=== PATIENT | male | born 1995 | race Caucasian/White ===

== ENCOUNTER 2016-06-25 10:31 | Emergency (ER) | payer OTHER ==
[2016-06-25] MEDS ORDERED: LIDOCAINE 1% INJ-PF (10 MG/ML) 30 ML SDV INJ ONE (11:16)
--- NOTE | 2016-06-25 11:21 | ER Document Report ---
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 He last received a tetanus 8 years ago. He denies numbness, tingling, difficulty moving his fingers or heavy bleeding. All tendons intact, brisk capillary refill, 6 cm laceration over right palmar surface I have greeted and performed a rapid initial assessment of this patient. A comprehensive ED assessment and evaluation of the patient, analysis of test results and completion of the medical decision making process will be conducted by additional ED providers. TRAVEL OUTSIDE OF THE [place] IN LAST 30 DAYS: No - Related Data Allergies/Adverse Reactions: No Known Allergies Allergy (Unverified 06/25/16 10:33) Past Medical History Renal/ Medical History: Denies: Hx Peritoneal Dialysis Physical Exam - Vital signs Vitals: Temp Pulse Resp BP Pulse Ox 98.1 F 75 18 122/77 100 06/25/16 10:40 06/25/16 10:40 06/25/16 10:40 06/25/16 10:40 06/25/16 10:40 Course - Vital Signs Vital signs: Temp Pulse Resp BP Pulse Ox 98.1 F 75 18 122/77 100 06/25/16 10:40 06/25/16 10:40 06/25/16 10:40 06/25/16 10:40 06/25/16 10:40
--- NOTE | 2016-06-25 11:47 | ER Document Report ---
ED Medical Screen (RME) - General Chief Complaint: Laceration Stated Complaint: INJURY/HAND PAIN Time Seen by Provider: 06/25/16 11:17 Mode of Arrival: Ambulatory Information source: Patient Notes: 21-year-old male presents to ED for laceration to his right hand and middle finger. He states he was cleaning dirt off the back of a toe truck when a piece of metal cut his hand across the palm across the middle finger. Patient states she's had his tetanus shot 5 years ago. I have greeted and performed a rapid initial assessment of this patient. A comprehensive ED assessment and evaluation of the patient, analysis of test results and completion of medical decision making process will be conducted by an additional ED providers. TRAVEL OUTSIDE OF THE [place] IN LAST 30 DAYS: No - Related Data Allergies/Adverse Reactions: No Known Allergies Allergy (Unverified 06/25/16 10:33) Past Medical History Renal/ Medical History: Denies: Hx Peritoneal Dialysis Physical Exam - Vital signs Vitals: Pulse Resp BP Pulse Ox 65 18 122/77 100 06/25/16 10:39 06/25/16 10:39 06/25/16 10:39 06/25/16 10:39 Course - Vital Signs Vital signs: Temp Pulse Resp BP Pulse Ox 98.1 F 75 18 122/77 100 06/25/16 10:40 06/25/16 10:40 06/25/16 10:40 06/25/16 10:40 06/25/16 10:40
[2016-06-25] MEDS ORDERED: BUPIVACAINE HCL 0.5 % INJ/PF 30 ML SDV INJ ONE (11:49)
[2016-06-25] MEDS ORDERED: HYDROCODONE/ACETAMINOPHEN 5-325 MG TABLET PO ONE (13:38)
[2016-06-25] MEDS ORDERED: CEPHALEXIN 500 MG CAPSULE PO ONE (13:38)
--- NOTE | 2016-06-25 13:39 | ER Document Report ---
ED General - General Chief Complaint: Laceration Stated Complaint: INJURY/HAND PAIN Time Seen by Provider: 06/25/16 11:17 Mode of Arrival: Ambulatory TRAVEL OUTSIDE OF THE [place] 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 Patient was initially evaluated by a provider from than the mid-level in the [facility] tract area deemed too extensive of repair and therefore was referred to the main side the ER. Patient otherwise has no complaints capillary refill is intact sensation is intact - Related Data Allergies/Adverse Reactions: No Known Allergies Allergy (Unverified 06/25/16 10:33) Past Medical History - General Information source: Patient - Social History Smoking Status: Unknown if Ever Smoked Family History: Reviewed & Not Pertinent Patient has suicidal ideation: No Patient has homicidal ideation: No Renal/ Medical History: Denies: Hx Peritoneal Dialysis Review of Systems - Review of Systems Constitutional: No symptoms reported EENT: No symptoms reported Cardiovascular: No symptoms reported Respiratory: No symptoms reported Gastrointestinal: No symptoms reported Genitourinary: No symptoms reported Male Genitourinary: No symptoms reported Musculoskeletal: No symptoms reported Skin: Other - Large laceration Hematologic/Lymphatic: No symptoms reported Neurological/Psychological: No symptoms reported -: Yes All other systems reviewed and negative Physical Exam - Vital signs Vitals: Pulse Resp BP Pulse Ox 65 18 122/77 100 06/25/16 10:39 06/25/16 10:39 06/25/16 10:39 06/25/16 10:39 Interpretation: Normal - General General appearance: Appears well, Alert - HEENT Head: Normocephalic, Atraumatic Eyes: Normal Pupils: PERRL - Respiratory Respiratory status: No respiratory distress Chest status: Nontender Breath sounds: Normal Chest palpation: Normal - Cardiovascular Rhythm: Regular Heart sounds: Normal auscultation Murmur: No - Abdominal Inspection: Normal Distension: No distension Bowel sounds: Normal Tenderness: Nontender Organomegaly: No organomegaly - Back Back: Normal, Nontender - Extremities General upper extremity: Nontender, Normal color, Normal ROM, Normal temperature , Other - Patient has a large 8.5 cm laceration of the right hand. Patient is able to perform an okay sign finger to thumb of every finger. There is no difficulty with extension or flexion. Capillary refill is intact. Exploration of the wound does show copious amount of adipose tissue tendons are visualized at the MCP joint on the second digit however no signs of laceration Patient does have a small laceration on the second digit at the PIP joint on the middle finger side is approximately 2 cm no active bleeding General lower extremity: Normal inspection, Nontender, Normal color, Normal ROM , Normal temperature, Normal weight bearing. No: Jaxon's sign - Neurological Neuro grossly intact: Yes Cognition: Normal Orientation: AAOx4 [place] Coma Scale Eye Opening: Spontaneous Valeria Coma Scale Verbal: Oriented [place] Coma Scale Motor: Obeys Commands Valeria Coma Scale Total: 15 Speech: Normal Motor strength normal: LUE, RUE, LLE, RLE Sensory: Normal - Psychological Associated symptoms: Normal affect, Normal mood - Skin Skin Temperature: Warm Skin Moisture: Dry Skin Color: Normal Course - Re-evaluation Re-evalutation: 06/25/16 15:11 Laceration was repaired as noted. Patient was placed in a protective splint antibiotics will be prescribed. Patient is to return to the ER for suture removal 06/25/16 15:11 - Vital Signs Vital signs: Temp Pulse Resp BP Pulse Ox 98.4 F 80 18 124/78 100 06/25/16 14:10 06/25/16 14:10 06/25/16 14:10 06/25/16 14:10 06/25/16 14:10 Procedures - Laceration/Wound Repair Right Hand Wound length (cm): 8.5 Wound's Depth, Shape: Linear, Other - Deep into the adipose tissue Laceration pre-procedure: Sterile PPE donned, Chloraprep applied, Sterile drapes applied, Shur-Clens applied Anesthetic type: 0.5% Bupivacaine Volume Anesthetic (mLs): 15 - approximately 10 mL of 1% lidocaine and 5 mL of 0.5% Marcaine used Wound explored: Clean Irrigated w/ Saline (mLs): 2,000 Wound Debrided: Minimal Wound Repaired With: Sutures Suture Size/Type: 5:0, Nylon Number of Sutures: 17 Layer Closure?: Yes Deep Layer Suture Size/Type: 4:0 - Vicryl Number Deep Layer Sutures: 5 Post-procedure wound care: Sterile dressing applied, Splint applied Post-procedure NV exam normal: No Complications: No Discharge - Discharge Clinical Impression: Laceration of right hand Qualifiers: Encounter type: initial encounter Foreign body presence: unspecified Qualified Code(s): S61.411A - Laceration without foreign body of right hand, initial encounter Condition: Good Disposition: HOME, SELF-CARE Instructions: Laceration Care (OM) Additional Instructions: Please keep your laceration dry and clean sutures need to be removed in 10 days. Please take antibiotics as prescribed. Please wear the splint that we gave you here in ER as needed to make sure that you do not extend the hand to discharge the sutures. While you're home resting you do not need to wear the splint. I would wear the splint for at least 5 days after that the wound should be healed up enough that you would not need it. Please return to the ER if there is any signs of infection redness swelling pain drainage I am working on the at 10:00 AM if you wish to return to have me remove the sutures. Prescriptions: Cephalexin Monohydrate [Keflex 500 mg Capsule] 500 mg PO QID #28 capsule Hydrocodone Bit/Acetaminophen [Hydrocodon-Acetaminophen 5-325] 1 each PO Q6 #10 tablet Forms: Return to Work
[2016-06-25 14:12] VITALS: BP 124/78
== END 2016-06-25 14:07 | disposition home or self-care (01) ==
LOC: ER 10:31
PROC: 0JQJ0ZZ Repair Right Hand Subcutaneous Tissue and Fascia, Open Approach (ICD-10-PCS; principal; 2016-06-25)
DX: S61.411A Laceration without foreign body of right hand, initial encounter (principal); S61.210A Laceration without foreign body of right index finger without damage to nail, initial encounter; W45.8XXA Other foreign body or object entering through skin, initial encounter; Y93.89 Activity, other specified; Y99.0 Civilian activity done for income or pay
CPT/HCPCS: 12044; 99283; 73130; L3984; J3490

== ENCOUNTER 2016-07-07 18:45 | Emergency (ER) | payer OTHER ==
--- NOTE | 2016-07-07 19:34 | ER Document Report ---
ED Suture/Wound Recheck - General Chief Complaint: Suture Removal Stated Complaint: STITCH REMOVAL Time Seen by Provider: 07/07/16 19:18 Mode of Arrival: Ambulatory Information source: Patient Notes: 21-year-old male presents to ED for suture removal from his hand. He was in the ED 11 days ago for a large laceration due to a piece of metal. Incision has healed well. Full range of motion. Denies pain unless he catches a suture on something. States he had a prescription and took his antibiotics. TRAVEL OUTSIDE OF THE [place] IN LAST 30 DAYS: No - HPI Previous ED treatment: Laceration repair Antibiotics given previously: Prescription Quality of pain: No pain - Unless he catches is a suture on something Severity: None Pain Level: Denies Context: Injury Symptoms since procedure: No complaints Exacerbated by: Other - If he catches sutures on something Relieved by: Denies - Related Data Allergies/Adverse Reactions: No Known Allergies Allergy (Unverified 06/25/16 10:33) Past Medical History - General Information source: Patient - Social History Smoking Status: Current Every Day Smoker Chew tobacco use (# tins/day): No Frequency of alcohol use: Rare Drug Abuse: None Family History: Reviewed & Not Pertinent Patient has suicidal ideation: No Patient has homicidal ideation: No - Past Medical History Cardiac Medical History: Reports: None Pulmonary Medical History: Reports: None EENT Medical History: Reports: None Neurological Medical History: Reports: None Endocrine Medical History: Reports: None Renal/ Medical History: Reports: None Malignancy Medical History: Reports None GI Medical History: Reports: None Musculoskeltal Medical History: Reports None Skin Medical History: Reports None Psychiatric Medical History: Reports: None Traumatic Medical History: Reports: None Infectious Medical History: Reports: None Surgical Hx: Negative - Immunizations Hx Diphtheria, Pertussis, Tetanus Vaccination: Yes Review of Systems - Review of Systems Constitutional: No symptoms reported EENT: No symptoms reported Cardiovascular: No symptoms reported Respiratory: No symptoms reported Gastrointestinal: No symptoms reported Genitourinary: No symptoms reported Male Genitourinary: No symptoms reported Musculoskeletal: No symptoms reported Skin: Other - Sutures are intact across the right hand. Laceration well approximated and healing. No redness or any signs of infection. Hematologic/Lymphatic: No symptoms reported Neurological/Psychological: No symptoms reported -: Yes All other systems reviewed and negative Physical Exam - Vital signs Vitals: Temp Pulse Resp BP Pulse Ox 97.8 F 76 16 135/87 H 99 07/07/16 18:50 07/07/16 18:50 07/07/16 18:50 07/07/16 18:50 07/07/16 18:50 Interpretation: Normal - General General appearance: Appears well, Alert - HEENT Head: Normocephalic, Atraumatic Eyes: Normal Pupils: PERRL - Respiratory Respiratory status: No respiratory distress Chest status: Nontender Breath sounds: Normal Chest palpation: Normal - Cardiovascular Rhythm: Regular Heart sounds: Normal auscultation Murmur: No - Abdominal Inspection: Normal Distension: No distension Bowel sounds: Normal Tenderness: Nontender Organomegaly: No organomegaly - Back Back: Normal, Nontender - Extremities General upper extremity: Normal inspection, Nontender, Normal color, Normal ROM , Normal temperature General lower extremity: Normal inspection, Nontender, Normal color, Normal ROM , Normal temperature, Normal weight bearing. No: Jaxon's sign - Neurological Neuro grossly intact: Yes Cognition: Normal Orientation: AAOx4 [place] Coma Scale Eye Opening: Spontaneous Valeria Coma Scale Verbal: Oriented Valeria Coma Scale Motor: Obeys Commands Valeria Coma Scale Total: 15 Speech: Normal Motor strength normal: LUE, RUE, LLE, RLE Sensory: Normal - Psychological Associated symptoms: Normal affect, Normal mood - Skin Skin Temperature: Warm Skin Moisture: Dry Skin Color: Normal Location of irregularity: Extremities - Sutures right hand no redness no swelling no drainage denies tenderness. Laceration well approximated and healing properly. Course - Vital Signs Vital signs: Temp Pulse Resp BP Pulse Ox 98.0 F 69 16 130/81 H 98 07/07/16 20:17 07/07/16 20:17 07/07/16 20:17 07/07/16 20:17 07/07/16 20:17 Discharge - Discharge Clinical Impression: Visit for suture removal Condition: Stable Disposition: HOME, SELF-CARE Instructions: Suture Removal Additional Instructions: Acetaminophen Acetaminophen may be taken for pain relief or fever control. It's much safer than aspirin, offering a wider range of "safe" dosages. It is safe during . Some brand names are Tylenol, Panadol, Datril, Anacin 3, Tempra, and Liquiprin. Acetaminophen can be repeated every four hours. The following are maximum recommended dosages: WEIGHT Dose Drops Elixir Chewable( 80mg) (LBS.) drprs=droppers tsp=teaspoon 6 40 mg .4 ml (1/2) 6-11 80 mg .8 ml (full) 1/2 tsp 1 tab 12-16 120 mg 1 1/2 drprs 3/4 tsp 1 1/2 tabs 17-23 160 mg 2 drprs 1 tsp 2 tabs 24-30 240 mg 3 drprs 1 1/2 tsp 3 tabs 30-35 320 mg 2 tsp 4 tabs 36-41 360 mg 2 1/4 tsp 4 1 /2 tabs 42-47 400 mg 2 1/2 tsp 5 tabs 48-53 480 mg 3 tsp 6 tabs 54-59 520 mg 3 1/4 tsp 6 1 /2 tabs 60-64 560 mg 3 1/2 tsp 7 tabs 65-70 600 mg 3 3/4 tsp 7 1 /2 tabs 71-76 640 mg 4 tsp 8 tabs 77-82 720 mg 4 1/2 tsp 9 tabs 83-88 800 mg 5 tsp 10 tabs >89 pounds or adults 650 mg to 900 mg Acetaminophen can be repeated every four hours. Maximum daily dose not to exceed 4000 mg. These maximum recommended dosages are slightly higher than the dosages written on the product container, but these dosages are very safe and well below the toxic dosage for acetaminophen. FOLLOW-UP CARE: If you have been referred to a physician for follow-up care, call the physician s office for an appointment as you were instructed or within the next two days. If you experience worsening or a significant change in your symptoms, notify the physician immediately or return to the Emergency Department at any time for re-evaluation. Forms: Elevated Blood Pressure
[2016-07-07 20:56] VITALS: BP 130/81
== END 2016-07-07 20:15 | disposition home or self-care (01) ==
LOC: ER 18:45
DX: Z48.02 Encounter for removal of sutures (principal); F17.200 Nicotine dependence, unspecified, uncomplicated